=== PATIENT | male | born 1995 | race African-American/Black ===

== ENCOUNTER 2021-05-04 20:58 | Emergency (ER) | payer OTHER, SELFPAY ==
[2021-05-04 21:07] VITALS: BP 147/75; PULSE 81; RESP 18; TEMP 36.1; O2SAT 100
--- NOTE | 2021-05-04 21:20 | ED.DENTAL ---
HPI - Dental/Oral General Chief complaint: Dental/Oral Stated complaint: right sided facial swelling Time Seen by Provider: 05/04/21 21:09 Source: patient Mode of arrival: ambulatory Limitations: no limitations History of Present Illness HPI Narrative: Patient presents with chief complaint of right upper gum swelling that began on Wednesday. Patient reports he has a cavity to his right upper molar in which he is going to reach out to a dentist this week to have addressed. Patient states that he wanted to have it evaluated to see if he needed antibiotics to prevent it from getting worse. Patient denies fever, chills, nausea, vomiting, diarrhea, drainage from the area. Patient denies any other symptoms or concerns. Patient denies any allergies to any. Related Data Home Medications Medication Instructions Recorded Confirmed No Home Medications 05/04/21 05/04/21 Allergies Allergy/AdvReac Type Severity Reaction Status Date / Time No Known Allergies Allergy Verified 05/04/21 20:59 Review of Systems Review of Systems: CONSTITUTIONAL: Denies fever, chills, or sweats. EYES: Denies visual changes, redness, or discharge. ENT: Reports dental pain and swelling denies rhinorrhea, congestion, sore throat, or otalgia. CARDIOVASCULAR: Denies chest pain, palpitations, or edema. RESPIRATORY: Denies cough or dyspnea. GASTROINTESTINAL: Denies abdominal pain, nausea, vomiting, or diarrhea. GENITOURINARY: Denies dysuria or hematuria. SKIN: Denies rash or itching. MUSCULOSKELETAL: Denies back pain, joint pain, or myalgia. NEUROLOGIC: Denies headache, numbness, dizziness, or weakness. PSYCHIATRIC: Denies anxiety or depression. Exam Narrative: GENERAL: Well-appearing, well-nourished, and in no acute distress. HEAD: Normocephalic, atraumatic. EYES: PERRLA and EOMI. ENT: Nares clear, no rhinorrhea or epistaxis. Mucous membranes moist. Diffuse swelling noted to right upper gumline.. Dental caries to right upper molars. There is no abscess noted to the gumline or drainage. Oropharynx without tonsillar hypertrophy exudate or other lesions. NECK: Supple. No adenopathy or masses. Range of motion intact. Airway clear CHEST: Clear to auscultation. No respiratory distress. No wheezes rales or rhonchi HEART: Regular rate and rhythm. EXTREMITIES: Normal range of motion. No edema. SKIN: Warm, dry, no rash. NEURO: No focal deficits. Alert and oriented x3. PSYCH: Normal mood and affect. Course Vital Signs Vital signs: Vital Signs Temperature 97.0 F L 05/04/21 21:07 Pulse Rate 81 05/04/21 21:07 Respiratory Rate 18 05/04/21 21:07 Blood Pressure 147/75 H 05/04/21 21:07 Pulse Oximetry 100 05/04/21 21:07 Temperature 97.0 F L 05/04/21 21:07 Pulse Rate 81 05/04/21 21:07 Respiratory Rate 18 05/04/21 21:07 Blood Pressure 147/75 H 05/04/21 21:07 Pulse Oximetry 100 05/04/21 21:07 MDM - Dental/Oral MDM Narrative Medical decision making narrative: Patient will be given antibiotics anti-inflammatory. Patient patient instructed to follow-up with dentist for definitive treatment. Patient to return to emerge department if he has any emergent symptoms. Differential Diagnosis Differential diagnosis: Likely gingival abscess, dental caries, toothache, dental abscess, fracture of tooth and aphthous ulcer Discharge Plan Discharge Clinical Impression: Dental caries, Dental abscess Patient Disposition: Home, Self-Care Condition: Stable Instructions: Antibiotic Form, Dental Abscess (ED), Toothache (ED) Additional Instructions: Take Augmentin as instructed. Take naproxen as directed for discomfort and inflammation. You may supplement with Tylenol if needed. Avoid any other NSAID usage. Follow-up with dentist for further evaluation and definitive treatment. Return to emergency department if you have any emergent. Prescriptions: New amoxicillin-pot clavulanate [Augmentin] 875-125 mg tablet 1 tablet PO Q12
[2021-05-04] MEDS: AMOXICILLIN/CLAVULANATE K 875-125 MG TAB 1 TABLET PO (21:26)
[2021-05-04] MEDS: KETOROLAC 10 MG TABLET PO (21:26)
== END 2021-05-04 22:09 | disposition home or self-care (01) ==
PROVIDERS: Emergency Provider Emergency Medicine
DX: K02.9 Dental caries, unspecified (principal); K04.7 Periapical abscess without sinus
CPT/HCPCS: 99283; A9270